=== PATIENT | female | born 1950 | race Hispanic/Latino ===

== ENCOUNTER 2022-12-12 18:00 | Outpatient (CLI) | payer MEDICARE | END 2022-12-12 18:01 | disposition home or self-care (01) | LOC: SLEEPLAB 18:00 | PROVIDERS: ATTEND Internal Medicine | DX: G47.33 Obstructive sleep apnea (adult) (pediatric) (principal); F32.A Depression, unspecified; E11.9 Type 2 diabetes mellitus without complications; R06.83 Snoring; I25.10 Atherosclerotic heart disease of native coronary artery without angina pectoris; I10 Essential (primary) hypertension | CPT/HCPCS: 95800 ==

== ENCOUNTER 2023-01-17 19:00 | Outpatient (CLI) | payer MEDICARE | END 2023-01-17 19:01 | disposition home or self-care (01) | LOC: SLEEPLAB 19:00 | PROVIDERS: ATTEND Internal Medicine | DX: G47.33 Obstructive sleep apnea (adult) (pediatric) (principal); F32.A Depression, unspecified; E11.9 Type 2 diabetes mellitus without complications; R06.83 Snoring; I25.10 Atherosclerotic heart disease of native coronary artery without angina pectoris; I10 Essential (primary) hypertension; G47.10 Hypersomnia, unspecified; E66.9 Obesity, unspecified; Z68.36 Body mass index [BMI] 36.0-36.9, adult | CPT/HCPCS: 95811 ==